=== PATIENT | male | born 1990 ===

== ENCOUNTER 2019-11-26 10:22 | Outpatient (CLI) | payer OTHER | END 2019-11-26 10:32 | disposition home or self-care (01) | LOC: SONOGRAMA 10:22 | PROVIDERS: ATTEND Physical Medicine & Rehabilitation | DX: M25.512 Pain in left shoulder (principal); M54.5 Low back pain ==

== ENCOUNTER 2022-04-14 14:28 | Outpatient (CLI) | payer OTHER | END 2022-04-14 14:39 | disposition home or self-care (01) | LOC: RAD 14:28 | PROVIDERS: ATTEND Physical Medicine & Rehabilitation | DX: M54.6 Pain in thoracic spine (principal); M25.552 Pain in left hip; M25.551 Pain in right hip ==

== ENCOUNTER 2022-04-19 14:10 | Outpatient (CLI) | payer OTHER | END 2022-04-19 14:18 | disposition home or self-care (01) | LOC: RAD 14:10 | PROVIDERS: ATTEND Physical Medicine & Rehabilitation | DX: M25.561 Pain in right knee (principal) ==